=== PATIENT | male | born 1950 | race Caucasian/White ===

== ENCOUNTER 2021-11-07 11:08 | Emergency (ER) | payer MEDICARE ==
[2021-11-07 11:55] LABS: #Basophils 0.1 10x3/uL (0.0-0.2); #Eosinphils 0.3 10x3/uL (0.0-0.5); #Neutrophils 9.7 10x3/uL (1.5-8.4); %Basophils 0.7 % (0.0-2.0); %Lymphocytes 18.4 % (18.0-47.0); %Monocytes 7.1 % (0.0-10.0); %Neutrophils 71.1 % (40.0-75.0); Hemoglobin 13.7 g/dL (13.5-17.5); Mean Corpuscular HGB CONC 33.3 g/dL (32.0-36.0); Mean Corpuscular Hemoglobin 30.2 pg (27.0-33.0); Mean Corpuscular Volume 90.5 fl (81.2-95.1); Mean Platelet Volume 8.9 fl (7.4-10.4); Platelet Count 263 10x3/uL (150-450); RBC Distribution Width 13.5 % (11.5-14.5); Red Blood Cell (RBC) Count 4.54 10x6/uL (4.32-5.72); White Blood Cell (WBC) Count 13.7 10x3/uL (3.5-10.5)
[2021-11-07 12:07] LABS: ALT (SGPT) 31 U/L (8-55); AST (SGOT) 29 U/L (5-34); Albumin 4.2 g/dL (3.4-4.8); Alkaline Phosphatase 135 U/L (40-110); Anion Gap 14 mmol/L (10-20); BUN (Urea Nitrogen) 15 mg/dL (8.4-25.7); Bilirubin, Total 0.7 mg/dL (0.2-1.2); Calc. Creatinine Clearance 0 mL/min (70-130); Calcium 9.5 mg/dL (7.8-10.44); Carbon Dioxide 24 mmol/L (23-31); Chloride 106 mmol/L (98-107); Estimated GFR 62; Glucose 102 mg/dL (80-115); Lipase 16 U/L (8-78); Potassium 4.4 mmol/L (3.5-5.1); Protein, Total 7.2 g/dL (5.8-8.1); Sodium 140 mmol/L (136-145)
== END 2021-11-07 13:30 | disposition home or self-care (01) ==
LOC: CSHERS 11:08
DX: R53.83 Other fatigue (principal); E78.5 Hyperlipidemia, unspecified; Z87.891 Personal history of nicotine dependence; Z79.899 Other long term (current) drug therapy
CPT/HCPCS: 36415; 71045; 80053; 83690; 84484; 85025; 93005

== ENCOUNTER 2021-11-12 13:25 | Emergency (ER) | payer MEDICARE ==
[2021-11-12 15:41] LABS: #Basophils 0.1 10x3/uL (0.0-0.2); #Eosinphils 0.3 10x3/uL (0.0-0.5); #Monocytes 0.9 10x3/uL (0.0-1.1); #Neutrophils 6.1 10x3/uL (1.5-8.4); %Basophils 1.1 % (0.0-2.0); %Eosinophils 3.2 % (0.0-6.0); %Lymphocytes 26.6 % (18.0-47.0); %Monocytes 8.6 % (0.0-10.0); %Neutrophils 59.1 % (40.0-75.0); Hemoglobin 13.2 g/dL (13.5-17.5); Mean Corpuscular HGB CONC 32.8 g/dL (32.0-36.0); Mean Corpuscular Hemoglobin 30.4 pg (27.0-33.0); Mean Corpuscular Volume 92.6 fl (81.2-95.1); Mean Platelet Volume 8.6 fl (7.4-10.4); Platelet Count 263 10x3/uL (150-450); RBC Distribution Width 13.4 % (11.5-14.5); Red Blood Cell (RBC) Count 4.34 10x6/uL (4.32-5.72); White Blood Cell (WBC) Count 10.3 10x3/uL (3.5-10.5)
[2021-11-12 15:55] LABS: ALT (SGPT) 34 U/L (8-55); AST (SGOT) 31 U/L (5-34); Albumin 3.9 g/dL (3.4-4.8); Alkaline Phosphatase 130 U/L (40-110); Anion Gap 13 mmol/L (10-20); BUN (Urea Nitrogen) 20 mg/dL (8.4-25.7); Bilirubin, Total 0.4 mg/dL (0.2-1.2); CK (CPK) 104 U/L (30-200); Calc. Creatinine Clearance 0 mL/min (70-130); Calcium 9.5 mg/dL (7.8-10.44); Carbon Dioxide 25 mmol/L (23-31); Chloride 106 mmol/L (98-107); Estimated GFR 63; Globulin 3.5 g/dL (2.4-3.5); Glucose 95 mg/dL (80-115); Magnesium 2.1 mg/dL (1.6-2.6); Protein, Total 7.4 g/dL (5.8-8.1); Sodium 140 mmol/L (136-145)
== END 2021-11-12 20:09 ==
LOC: CSHERS 13:25
DX: R53.1 Weakness (principal); E78.5 Hyperlipidemia, unspecified; Z86.16 Personal history of COVID-19; Z87.891 Personal history of nicotine dependence
CPT/HCPCS: 36415; 80053; 82550; 83735; 85025; 93005

== ENCOUNTER 2021-12-03 15:38 | Emergency (ER) | payer MEDICARE ==
[~2021-12-03 15:38] MED LIST: Iopamidol 370 76% 100 ML VIAL ONE
[2021-12-03 16:49] LABS: #Basophils 0.1 10x3/uL (0.0-0.2); #Eosinphils 0.2 10x3/uL (0.0-0.5); #Monocytes 0.7 10x3/uL (0.0-1.1); #Neutrophils 8.9 10x3/uL (1.5-8.4); %Basophils 0.8 % (0.0-2.0); %Eosinophils 1.3 % (0.0-6.0); %Lymphocytes 15.8 % (18.0-47.0); %Monocytes 6.2 % (0.0-10.0); %Neutrophils 74.7 % (40.0-75.0); Hemoglobin 13.6 g/dL (13.5-17.5); Mean Corpuscular HGB CONC 34.2 g/dL (32.0-36.0); Mean Corpuscular Hemoglobin 30.8 pg (27.0-33.0); Mean Platelet Volume 8.9 fl (7.4-10.4); Platelet Count 282 10x3/uL (150-450); RBC Distribution Width 13.5 % (11.5-14.5); Red Blood Cell (RBC) Count 4.42 10x6/uL (4.32-5.72); White Blood Cell (WBC) Count 11.9 10x3/uL (3.5-10.5)
[2021-12-03 17:01] LABS: ALT (SGPT) 32 U/L (8-55); AST (SGOT) 29 U/L (5-34); Albumin 4.2 g/dL (3.4-4.8); Alkaline Phosphatase 139 U/L (40-110); Anion Gap 14 mmol/L (10-20); BUN (Urea Nitrogen) 20 mg/dL (8.4-25.7); Bilirubin, Total 0.5 mg/dL (0.2-1.2); Calc. Creatinine Clearance 0 mL/min (70-130); Calcium 9.4 mg/dL (7.8-10.44); Carbon Dioxide 24 mmol/L (23-31); Chloride 103 mmol/L (98-107); Estimated GFR 70; Globulin 3.6 g/dL (2.4-3.5); Glucose 94 mg/dL (80-115); Protein, Total 7.8 g/dL (5.8-8.1); Sodium 136 mmol/L (136-145)
[2021-12-03] MEDS ORDERED: Cefepime 2 GM VIAL ONE (17:14)
[2021-12-03] MEDS ORDERED: VANCOMYCIN 2 GRAM/400 ML BAG 2 GM in Premix Bag 1 BAG IVPB SCH (17:45)
[2021-12-03 17:48] LABS: Bilirubin Neg (Negative); Blood, Urine Negative (Negative); Clarity Clear (Clear); Glucose, Urine (Dipstick) Normal (Negative); Ketone, Urine Negative (Negative); Leukocyte 25 (Negative); Nitrite Negative (Negative); Protein, Urine (Dipstick) 15 mg/dl (Neg-Trace); Urobilinogen Normal mg/dL (Less than 2)
[2021-12-03 17:56] LABS: Bacteria/HPF Rare-Few HPF (None Seen); RBC/HPF 0-3 HPF (0-3)
[2021-12-03 19:36] LABS: Lactic Acid 1.1 mmol/L (0.5-2.2)
[2021-12-03] MEDS ORDERED: Aspirin Chewable 81 MG TAB ONE ×2 (20:49→20:51)
== END 2021-12-03 22:02 | disposition short-term general hospital (02) ==
LOC: CSHERS 15:38
DX: G45.9 Transient cerebral ischemic attack, unspecified (principal); A41.9 Sepsis, unspecified organism; R53.1 Weakness; R29.700 NIHSS score 0; E78.5 Hyperlipidemia, unspecified; Z87.891 Personal history of nicotine dependence; Z79.899 Other long term (current) drug therapy
CPT/HCPCS: 36415; 70450; 71275; 80053; 81003; 81015; 83605; 83880; 84484; 85025; 87040; 87086; 93005; 96374; 96375; J0692; J3370; Q9967

== ENCOUNTER 2023-02-18 11:48 | Outpatient (CLI) | payer MEDICARE | END 2023-02-18 11:49 | disposition home or self-care (01) | LOC: CSHCP 11:48 | PROVIDERS: ATTEND Internal Medicine | DX: Z12.2 Encounter for screening for malignant neoplasm of respiratory organs (principal); F17.210 Nicotine dependence, cigarettes, uncomplicated; R06.02 Shortness of breath; R91.8 Other nonspecific abnormal finding of lung field | CPT/HCPCS: 71271; 94060; 94664; 94726; 94729; 94760 ==

== ENCOUNTER 2024-09-27 14:49 | Outpatient (CLI) | payer MEDICARE | END 2024-09-27 14:50 | disposition home or self-care (01) | LOC: CSHCT 14:49 | PROVIDERS: ATTEND Internal Medicine | DX: Z12.2 Encounter for screening for malignant neoplasm of respiratory organs (principal); Z87.891 Personal history of nicotine dependence; U09.9 Post COVID-19 condition, unspecified | CPT/HCPCS: 71271; 94060; 94664; 94729; 94760 ==

== ENCOUNTER 2024-11-17 14:17 | Outpatient (CLI) | payer MEDICARE | END 2024-11-17 14:18 | disposition home or self-care (01) | LOC: CSHULT 14:17 | PROVIDERS: ATTEND Internal Medicine | DX: I73.9 Peripheral vascular disease, unspecified (principal); R93.6 Abnormal findings on diagnostic imaging of limbs | CPT/HCPCS: 93923 ==

== ENCOUNTER 2024-12-07 14:42 | Outpatient (CLI) | payer MEDICARE ==
[2024-12-07 17:02] LABS: Estimated GFR - POC 58.0
== END 2024-12-07 14:43 | disposition home or self-care (01) ==
LOC: CSHCT 14:42
PROVIDERS: ATTEND Thoracic Surgery (Cardiothoracic Vascular Surgery)
DX: I73.9 Peripheral vascular disease, unspecified (principal); I71.43 Infrarenal abdominal aortic aneurysm, without rupture; I77.1 Stricture of artery; K76.0 Fatty (change of) liver, not elsewhere classified; K57.30 Diverticulosis of large intestine without perforation or abscess without bleeding; M85.88 Other specified disorders of bone density and structure, other site; M48.54XD Collapsed vertebra, not elsewhere classified, thoracic region, subsequent encounter for fracture with routine healing; M48.56XD Collapsed vertebra, not elsewhere classified, lumbar region, subsequent encounter for fracture with routine healing
CPT/HCPCS: 75635; 82565